=== PATIENT | male | born 1965 | race Hispanic/Latino ===

== ENCOUNTER → 2021-07-09 | Outpatient (CLI) | payer BC ==
[~2021-07-09] MED LIST: FUROSEMIDE INJ 10 MG/ML 4 ML VIAL ONE; INDOMETHACIN75 MG PO; LISINOPRIL10 MG PO; SIMVASTATIN PO; TERBINAFINE HC250 MG PO
== END ==
LOC: NM 08:24
PROVIDERS: ATTEND Urology
DX: N20.0 Calculus of kidney (principal); R31.0 Gross hematuria; R80.9 Proteinuria, unspecified
CPT/HCPCS: 78708; A9562; J1940

== ENCOUNTER → 2021-07-15 | Day surgery (SDC) | payer BC, OTHER ==
[2021-07-14 09:46] LABS: ANION GAP 12.9 mmol/L (8-16); CALCIUM 8.3 mg/dL (8.4-10.2); CREATININE, SERUM 1.1 mg/dL (0.72-1.25); POTASSIUM 3.9 mmol/L (3.5-5.1)
[~2021-07-15] MED LIST changes: +AMLODIPINE BESY10 MG PO; +CEFTRIAXONE 1 GM VIAL ONE; -FUROSEMIDE INJ 10 MG/ML 4 ML VIAL ONE; +HYDROCHLOROTHIA25 MG PO; +LIPITOR10 MG PO; +METFORMIN HCL500 MG PO; +MIDAZOLAM HCL 2 MG/2 ML VIAL ONE; +OZEMPIC0.25 MG/0. SC; +SODIUM CHLORIDE 0.9% 50ML 50 ML ONE; +VASOTEC10 MG PO; +VITAMIN D PO
[2021-07-15 08:50] VITALS: BP 134/92
== END | disposition home or self-care (01) ==
LOC: OR 06:28
PROVIDERS: ATTEND Urology
DX: N20.0 Calculus of kidney (principal); N39.0 Urinary tract infection, site not specified; R80.9 Proteinuria, unspecified; E66.01 Morbid (severe) obesity due to excess calories; I10 Essential (primary) hypertension; E78.5 Hyperlipidemia, unspecified; E11.9 Type 2 diabetes mellitus without complications; Z01.810 Encounter for preprocedural cardiovascular examination; Z01.812 Encounter for preprocedural laboratory examination; Z01.818 Encounter for other preprocedural examination; Z20.822 Contact with and (suspected) exposure to COVID-19; Z79.84 Long term (current) use of oral hypoglycemic drugs; Z68.37 Body mass index [BMI] 37.0-37.9, adult
CPT/HCPCS: 36415; 50590; 74018; 80048; 82948; 93005; J0696; J2250; U0002

== ENCOUNTER → 2021-08-20 | Day surgery (SDC) | payer OTHER ==
[~2021-08-20] MED LIST changes: +ACETAMINOPHEN/CODEINE 300MG - 30MG TAB ONE; +DEXAMETHASONE SOD PHOS INJ 4 MG/ML SDV ONE; +IOPAMIDOL 300MG/ML 50ML INFUS..BTL IV ONE; +LIDOCAINE HCL 2% LOCAL INJ 5 ML SDV VIAL INJ ONE; -MIDAZOLAM HCL 2 MG/2 ML VIAL ONE; +ONDANSETRON HCL INJ 2MG/ML 2ML 2 MG/ML VIAL ONE; +POVIDONE IODINE 0.05% 0.05 % ML PO ONE; +PROPOFOL IV EMULSION 10 MG/ML 20 ML VIAL ONE; +SEVOFLURANE INHAL SOLN 250 ML PEN BTL ONE
[2021-08-20 08:20] VITALS: BP 110/79
== END | disposition home or self-care (01) ==
LOC: OR 06:00
PROVIDERS: ATTEND Urology
DX: N20.0 Calculus of kidney (principal); N40.0 Benign prostatic hyperplasia without lower urinary tract symptoms; N39.0 Urinary tract infection, site not specified; R35.1 Nocturia; R80.9 Proteinuria, unspecified; E66.01 Morbid (severe) obesity due to excess calories; E11.9 Type 2 diabetes mellitus without complications; I10 Essential (primary) hypertension; Z01.812 Encounter for preprocedural laboratory examination; Z01.818 Encounter for other preprocedural examination; Z20.822 Contact with and (suspected) exposure to COVID-19; Z79.84 Long term (current) use of oral hypoglycemic drugs; Z79.899 Other long term (current) drug therapy; Z68.37 Body mass index [BMI] 37.0-37.9, adult
CPT/HCPCS: 36415; 50590; 74018; 82948; C1758; J0696; J1100; J2001; J2405; U0002